=== PATIENT | male | born 1950 | race African-American/Black ===

== ENCOUNTER 2024-10-26 11:11 | Emergency (ER) | payer MEDICARE, OTHER ==
[~2024-10-26] VITALS: Ht 170.2 cm; Wt 77.3 kg
[2024-10-26] MEDS ORDERED: TADA20TA43 PO (11:22)
[2024-10-26] MEDS ORDERED: ALLO100T PO (11:22)
[2024-10-26] MEDS ORDERED: ASPI-1444 PO (11:22)
[2024-10-26] MEDS ORDERED: AMLO10TA55 PO (11:22)
[2024-10-26] MEDS ORDERED: TAMS0.4C94 PO (11:22)
[2024-10-26] MEDS: LIDOCAINE 5% TRANSDERMAL PATCH TD ONE (13:32)
[2024-10-26] MEDS: KETOROLAC TROMETHAMINE 30 MG/ML VIAL IM ONE (13:32)
[2024-10-26] MEDS ORDERED: ACET-3385 PO (15:26)
[2024-10-26] MEDS ORDERED: IBUP-1492 PO (15:26)
[2024-10-26 15:41] VITALS: BP 151/88; PULSE 74; RESP 18; TEMP 98; O2SAT 100
== END 2024-10-26 16:47 | disposition home or self-care (01) ==
LOC: EMS 11:14
DX: S09.90XA Unspecified injury of head, initial encounter (principal); M54.2 Cervicalgia; F17.210 Nicotine dependence, cigarettes, uncomplicated; Z79.82 Long term (current) use of aspirin; V43.52XA Car driver injured in collision with other type car in traffic accident, initial encounter; Y93.89 Activity, other specified; Y92.410 Unspecified street and highway as the place of occurrence of the external cause; Y99.8 Other external cause status
CPT/HCPCS: 99285; 70450; 72125; 96372; J1885